=== PATIENT | male | born 1975 | race Caucasian/White ===

== ENCOUNTER 2020-10-22 09:23 | Emergency (ER) | payer OTHER ==
[~2020-10-22] VITALS: Ht 167.6 cm; Wt 70.3 kg
[2020-10-22 09:28] VITALS: Ht 167.6 cm; Wt 70.3 kg
[2020-10-22 12:59] VITALS: BP 122/70
== END 2020-10-22 12:59 | disposition home or self-care (01) ==
LOC: ED 09:23
DX: S61.011A Laceration without foreign body of right thumb without damage to nail, initial encounter (principal); W20.8XXA Other cause of strike by thrown, projected or falling object, initial encounter; Y93.89 Activity, other specified; Y92.89 Other specified places as the place of occurrence of the external cause; Y99.8 Other external cause status
CPT/HCPCS: 90715; J2001